=== PATIENT | female | born 1975 | race Caucasian/White ===

== ENCOUNTER 2025-01-21 01:56 | Day surgery (SDC) | payer OTHER, SELFPAY ==
--- OUTSIDE RECORDS SUMMARY | 2004-08-28 06:00 | XMS_ITS | Continuity of Care Document ---
Author Organization [facility] Address [address] [place] [address] [address] [place] [address] Phone Care Team Providers Care Paint Prep Technician Name Role Phone Burch OD, Villa Unavailable Unavailable Advance Directives Directive Yes / No Effective Date File Name No Information Encounters Encounter Description Practice Location Reason(s) For Visit Diagnoses Date Provider Providers Copied on Encounter [facility], [address], [place], [place], [id number], [place] tel:[phone] [facility] No Information Apr-2 9-200 5 Burch OD [place]. [address] [facility] [address] , [address], [place], [address], [place]. tel:[phone] Family History Family Member Type Diagnosis Age At Onset No Information Payers Payer name Insurance type Covered constitution party ID Authoriza tion(s) [facility] Commercial CI [id number] Social History Type Description Quantity Date Captured Comments Sex Female Smoking Status No Information Chief Complaint And Reason For Visit No Information Reason For Referral Reason For Referral No Information History Of Present Illness Encounter Date Complaint History Of Prese nt Illness No Information Functional Status Date Functional Assessmen t No Information Instructions Date Instruction Additional Infor mation No Information Assessments Type Assessment Date No Information Patient Care Teams Name Effective Dates (start - stop) Status Members No Information
[2025-01-07 11:43] VITALS: BMI 23.4
--- OUTSIDE RECORDS SUMMARY | 2025-01-21 01:58 | XMS_ITS | Clinical Summary ---
Author Organization [facility] Address [address] [place] [address] Care Team Providers Care Bowling Alley Operator Name Role Phone Arnoldo Alfred MD Primary Care Provider [phone] Allergies Active Allergy Reactions Criticality Noted Date Comments Sulfa (Sulfonamide Antibiotics) Nausea and Vomiting Low 04/27/2018 Medications 05/21, , 1 mg-20 mcg (21)/75 mg (7) tablet 04/25/2018 Active Active Problems Problem Noted Date Diagnosed Date Abnormal mammogram of left breast 04/27/2018 Abnormal ultrasound of breast 04/27/2018 Macromastia 04/27/2018 Chronic pain of both shoulders 04/27/2018 Upper back pain, chronic 04/27/2018 Family History Medical History Relation Name Comments No Known Problems Mother No Known Problems Sister Relation Name Status Comments Father Alive Mother Alive Sister Alive Social History Tobacco Use Types Packs/Day Years Used Date Smoking Tobacco: Never Smokeless Tobacco: Never Alcohol Use Standard Drinks/Week Comments No 0 (1 standard drink = 0.6 oz pur e alcohol) Comments No Sex and Gender Information Value Date Recorded Sex Assigned at Not on file Legal Sex Female 12:35 PM GRINDER MILL OPERATOR Gender Identity Not on file Sexual Orientation Not on file Last Filed Vital Signs Vital Sign Reading Time Taken Comments Blood Pressure 126/91 04/27/2018 1:14 PM GRINDER MILL OPERATOR Pulse 76 04/27/2018 1:14 PM GRINDER MILL OPERATOR Temperature 36.9 C (98.4 F) 04/27/2018 1:14 PM GRINDER MILL OPERATOR Respiratory Rate - - Oxygen Saturation 97% 04/27/2018 1:14 PM GRINDER MILL OPERATOR Inhaled Oxygen Concentration - - Weight 100.5 kg (221 lb 9.6 oz) 04/27/2018 1:14 PM GRINDER MILL OPERATOR Height 172.7 cm (5' 8) 04/27/2018 1:14 PM GRINDER MILL OPERATOR Body Mass Index 33.69 04/27/2018 1:14 PM GRINDER MILL OPERATOR Plan of Treatment Health Maintenance Due Date Last Done Comments DTAP/TDAP/TD VACCINES (1 - Tdap) 1996 HEPATITIS B VACCINES (1 of 3 - 19+ 3-dose series) 1996 HPV/Cotest (21-29) 1998 CERVICAL CANCER SCREENING 2007 HPV/Cotest (30-65) 2007 PAP SMEAR 2007 BREAST CANCER SCREENING 04/13/2019 04/13/20 18, 09/22/2017, 09/20/2017 COLORECTAL SCREENING 2022 Colorectal Cancer Screening 2022 FIT-DNA Q 3 years 2022 FIT/FOBT Q 1 year 2022 Flex Sig/CT Colonography Q 5 years 2022 INFLUENZA VACCINE (#1) 2024 01/19/2018 Procedures Procedure Name Priority Date/Time Associated Diagnosis Comments MAMMO UNILATERAL DIAG LEFT Routine 04/13/2018 from Last 3 Months or Most Recently Relevant to Health Maintenance Results * MAMMO UNILATERAL DIAG LEFT (04/13/2018) Anatomical Region Laterality Modality Breast Left Mammography us Abstract Provider MAMMO ORDERABLES Final Result from Last 3 Months or Most Recently Relevant to Health Maintenance Insurance [facility] OPTIONS PPO [id number] Care Teams Bowling Alley Operator Relationship Specialty Start Date End Date Arnoldo Alfred MD [address] [facility] [address] [place] [id number] PCP - General Family Practice 04/27/18
--- OUTSIDE RECORDS SUMMARY | 2025-01-21 01:58 | XMS_ITS | Clinical Summary ---
Author Organization [email or web address] Address [address] [place] [address] Care Team Providers Care Master [place] Name Role Phone Unavailable Primary Care Provider Unavailabl e Source Comments [email or web address],non-owned Affiliates and Associated Physician Practices is amultiple site organization consisting of ambulatory clinics and hospital sitesin [place], [place], [place] and [place]. This disclosure is being madepursuant to the Care Everywhere program and may not contain all information available regarding this patient. Last updated 18.[email or web address] Allergies No known active allergies Immunizations Immunization Administration Dates Next Due INFLUENZA VACCINE, QUADR. (F LUZONE; FLULAVAL; FLUARIX; AFLURIA QUADRIVALENT; 6MO+), 0.5 ML (IIV4) 01/19/2018 Social History Tobacco Use Types Packs/Day Years Used Date Smoking Tobacco: Never Assessed Comments Unknown Sex and Gender Information Value Date Recorded Sex Assigned at Not on file Legal Sex Female 4:13 PM CDT Gender Identity Not on file Sexual Orientation Not on file Plan of Treatment Health Maintenance Due Date Last Done Comments COLOGUARD (AGES 45-75) - COL ON CA SCREENING 1977 COLON MONITORING 1977 COLONOSCOPY - COLON CA SCREENING 1977 CT COLONOGRAPHY - COLON CA SCREENING 1977 Colorectal Cancer Screening 1977 FIT - COLON CA SCREENING 1977 FLEX SIG - COLON CA SCREENING 1977 LIPID TESTING 1977 MAMMOGRAM 1977 HIV SCREENING 1992 HEPATITIS C SCREENING 03/25/1995 DTAP/TDAP/TD VACCINES (1 - Tdap) 1996 HEPATITIS B VACCINE (1 of 3 - 19+ 3-dose series) 1996 DEPRESSION SCREENING 05/02/2024 COVID-19 VACCINE (2023-2 5 season) 2024 INFLUENZA VACCINE (#1) 2024 01/19/2018 ZOSTER VACCINE (1 of 2) 2027 HIB VACCINE Aged Out No longer eligi ble based on patient's age to complete this topic HPV VACCINE Aged Out No longer eligi ble based on patient's age to complete this topic MENINGOCOCCAL (Group B) VACC INE SHARED DECISION-MAKING Aged Out No longer eligibl e based on patient's age to complete this topic MENINGOCOCCAL GROUPS A/C/Y/W VACCINE Aged Out No longer eligible b ased on patient's age to complete this topic PNEUMOCOCCAL VACCINE Aged Out No long er eligible based on patient's age to complete this topic Insurance [address] [place] [address]
--- OUTSIDE RECORDS SUMMARY | 2025-01-21 01:58 | XMS_ITS | Clinical Summary ---
Author Organization [facility] [address] Address [address] [place] [address] Care Team Providers Care Cnc Lathe Programmer Name Role Phone Alissa Feliciano MD Primary Care Provider + Allergies Active Allergy Reactions Criticality Noted Date Comments Sulfa (Sulfonamide Antibiotics) Nausea And Vomiting Low 04/27/2018 Medications escitalopram (LEXAPRO) 10 mg tablet Take 1 tablet (10 mg total) by mouth daily 3 Active [place] Fe 05/21, , 1 mg-20 mcg (21)/75 mg (7) per tablet TAKE 1 TABLET BY MOUTH EVERY DAY CONTINUOUSLY Active phentermine (ADIPEX-P) 37.5 mg tablet Take 1 tablet (37.5 mg total) by mouth daily 3 Active topiramate (TOPAMAX) 25 mg tablet Take 1 tablet (25 mg total) by mouth 2 (two) times a day 3 Active Active Problems No known active problems Social History Tobacco Use Types Packs/Day Years Used Date Smoking Tobacco: Never Assessed Comments Unknown Sex and Gender Information Value Date Recorded Sex Assigned at Not on file Legal Sex Female 3:23 PM CDT Gender Identity Not on file Sexual Orientation Not on file Obstetrics History Last Filed Vital Signs Vital Sign Reading Time Taken Comments Blood Pressure 140/90 10/11/2023 6:29 PM CDT Pulse 86 10/11/2023 6:29 PM CDT Temperature 36.9 C (98.4 F) 10/11/2023 6:29 PM CDT Respiratory Rate 20 10/11/2023 6:29 PM CDT Oxygen Saturation 100% 10/11/2023 6:29 PM CDT Inhaled Oxygen Concentration - - Weight 73 kg (161 lb) 10/11/2023 6:29 PM CDT Height 172.7 cm (5' 8) 10/11/2023 6:29 PM CDT Body Mass Index 24.48 10/11/2023 6:29 PM CDT Plan of Treatment Health Maintenance Due Date Last Done Comments Breast Cancer Screening-Mammogram 1977 Cervical Cancer Screening 1977 Colon Cancer Screening-Colonoscopy 1977 Depression Screening 1977 Hepatitis C Screening 1977 Hepatitis B Screening 1995 Regular Well Visit/Exam 18-64 1995 DTaP/Tdap/Td Vaccine (1 - Tdap) 01/30/2019 01/29/2019 Covid-19 Vaccine ( season) 2024 05/07/2021, 07/08/2020, 05/15/2020 Influenza Vaccine (#1) 2024 , 01/29/2019, 01/19/2018, Additional history exists Pneumococcal vaccine <65 Aged Out No longer eligible based on patient's age to complete this topic Insurance [employer] [facility] Care Teams Cnc Lathe Programmer Relationship Specialty Start Date End Date Alissa Feliciano MD [address] [place] [address] [place] [address] PCP - General Family Medicine 12/04/22
[2025-01-21] MEDS: LACTATED RINGERS 1,000 ML 150 ML IV CONT (06:30)
[2025-01-21 06:31] VITALS: BP 122/83; PULSE 94; RESP 16; TEMP 36.4; O2SAT 99
[2025-01-21 06:33] LABS: BEDSIDEPREGUCG Negative (Negative)
--- NOTE | 2025-01-21 07:00 | WPDANESEPPF ---
Anes - Initial Pre Proc Eval Procedure: Operation Date: 01/21/25 07:30 Proposed Procedures p Screening Colonoscopy - Toan Julian MD Date/Time: 01/21/25 07:00 Surgeon: Toan Julian MD Pre Op Diagnosis: Screening Patient Data Age: 49 Gender: F Height: 1.7 m Weight: 67.5 kg Last Vital Signs Temp 36.4 C L 01/21/25 06:31 Pulse 94 01/21/25 06:31 Resp 16 01/21/25 06:31 BP 122/83 01/21/25 06:31 Pulse Ox 99 01/21/25 06:31 O2 Del Method Room Air 01/21/25 06:31 Allergies Allergy/AdvReac Type Severity Reaction Status Date / Time cefaclor Allergy Unknown Nausea Verified 01/21/25 06:22 Sulfa (Sulfonamide Allergy Unknown PROFUSE Verified 01/21/25 06:22 Antibiotics) VOMITING NFA Allergy Unknown Unknown Uncoded 07/30/21 07:36 Home Medications ?Medication ?Instructions ?Recorded ?Confirmed ?Type metoprolol succinate 25 mg 25 mg PO DAILY #100 tabs 09/11/21 01/07/25 Rx tablet,extended release 24 hr sertraline 25 mg tablet (Zoloft) 25 mg PO QHS #90 tabs 09/25/21 01/21/25 Rx norethindrone 1 mg-ethinyl 1 tablet PO DAILY 01/07/25 01/21/25 History estradiol 20 mcg (21)-iron 75 mg (7) tablet (Susanne Fe 05/21 (28)) semaglutide (weight loss) 2.4 2.4 mg subcut WEEKLY 01/07/25 01/21/25 History mg/0.75 mL subcutaneous pen injector (Wegovy) Laboratory Tests 01/21/25 06:31 POC Urine HCG, Qual Negative (Negative) Patient hx anesthesia problems: none Family hx anesthesia problems: none Results Review: All pre-operative results and documents have been reviewed as part of the pre-operative evaluation. [facility] Past Medical History Medical History Overweight Family History Family History Mother Family history of diabetes mellitus in first degree relative Father Patient's father is in good health Hypertension Cerebrovascular accident Sibling Patient's sister is in good health Social History Social History Smoking status: Never smoker Second hand tobacco smoke exposure: No Alcohol intake: never Substance use: never Substance use type: does not use Living arrangements: with family Occupation/Education: occupation Gender identity (if verbalized by the patient): Female Sexual Orientation (if Verbalized by the Patient): Straight or Heterosexual Spiritual care concerns: No Anes - Eval Final PreProcedure Day of Procedure 01/21/25 07:00 Patient weight: normal Heart: regular rate and rhythm Lungs: clear to auscultation Airway: Mallampati scale class 1 Neurological: alert and oriented Last oral intake: >/= 8 hours ASA classification: II Emergent: no Anesthetic plan: proceed Anesthesia type and monitoring: general GIVS and standard monitoring Results Review: All pre-operative results and documents have been reviewed as part of the pre-operative evaluation. Informed Consent: The patient's anesthetic plan and its attendant risks and benefits were discussed with the patient/family/POA. Questions were solicited and answers provided to the satisfaction of the patient/family/POA.
--- NOTE | 2025-01-21 07:25 | PM.HPGS ---
History of Present Illness History of Present Illness Consent: Risks, benefits, and alternatives have been discussed and questions answered. Patient agrees to proceed with procedure. Chief complaint: Screening Narrative: Susan Payne is a 49 year old female here for first screening colonoscopy Review of Systems Review of Systems: All systems reviewed & are unremarkable except as noted in HPI and below PMFSH Past Medical History Medical History (Updated 01/21/25 @ 07:26 by Toan Julian MD) Colon cancer screening Overweight Family History Family History Mother Family history of diabetes mellitus in first degree relative Father Patient's father is in good health Hypertension Cerebrovascular accident Sibling Patient's sister is in good health Social History Social History Smoking status: Never smoker Second hand tobacco smoke exposure: No Alcohol intake: never Substance use: never Substance use type: does not use Living arrangements: with family Occupation/Education: occupation Gender identity (if verbalized by the patient): Female Sexual Orientation (if Verbalized by the Patient): Straight or Heterosexual Spiritual care concerns: No Meds Home Medications and Allergies Home Medications ?Medication ?Instructions ?Recorded ?Confirmed ?Type metoprolol succinate 25 mg 25 mg PO DAILY #100 tabs 09/11/21 01/07/25 Rx tablet,extended release 24 hr sertraline 25 mg tablet (Zoloft) 25 mg PO QHS #90 tabs 09/25/21 01/21/25 Rx norethindrone 1 mg-ethinyl 1 tablet PO DAILY 01/07/25 01/21/25 History estradiol 20 mcg (21)-iron 75 mg (7) tablet (Susanne Fe 05/21 (28)) semaglutide (weight loss) 2.4 2.4 mg subcut WEEKLY 01/07/25 01/21/25 History mg/0.75 mL subcutaneous pen injector (Josiah) Allergies Allergy/AdvReac Type Severity Reaction Status Date / Time cefaclor Allergy Unknown Nausea Verified 01/21/25 06:22 Sulfa (Sulfonamide Allergy Unknown PROFUSE Verified 01/21/25 06:22 Antibiotics) VOMITING NFA Allergy Unknown Unknown Uncoded 07/30/21 07:36 Vital Signs Vital Signs - 24 hr 01/21/25 06:31 Temperature 97.5 F L Pulse Rate 94 Respiratory Rate 16 Blood Pressure 122/83 Pulse Oximetry 99 Oxygen Delivery Room Air Exam Const: General: comfortable and no acute distress HENMT: Face/Nose/Sinus: Normal nares present Eyes: General: appearance normal, both eyes and all related structures Neck: Neck: no JVD Resp: Auscultation: clear to auscultation bilaterally Cardio: Rate: regular rate Rhythm: regular rhythm GI: Inspection: non-distended GI Palp: Yes Soft to palpation Skin: General skin exam: normal color Neuro: Speech: normal speech Extrem: General: normal to inspection Psych: Mental Status: mental status grossly normal Assessment and Plan Assessment and plan (1) Colon cancer screening: Code(s): Z12.11 - Encounter for screening for malignant neoplasm of colon Status: Acute Assessment and Plan: colonoscopy
[2025-01-21 07:46] VITALS: BP 109/72; PULSE 74; RESP 13; O2SAT 98
[2025-01-21 07:56] VITALS: BP 107/69; PULSE 69; RESP 14; O2SAT 100
[2025-01-21 08:06] VITALS: BP 124/82; PULSE 65; RESP 16; O2SAT 100
== END 2025-01-21 08:15 | disposition home or self-care (01) ==
PROVIDERS: Anesthesiology; PCP Physician Assistant; Referring Provider Physician Assistant; Visit Provider Internal Medicine Gastroenterology
PROC: 0DJD8ZZ Inspection of Lower Intestinal Tract, Via Natural or Artificial Opening Endoscopic (ICD-10-PCS; CPT 45378; principal; 2025-01-21 07:30)
DX: Z12.11 Encounter for screening for malignant neoplasm of colon (principal); K64.8 Other hemorrhoids; K57.30 Diverticulosis of large intestine without perforation or abscess without bleeding; Z79.85 Long-term (current) use of injectable non-insulin antidiabetic drugs
CPT/HCPCS: 45378; J2003; J2704; J7120